=== PATIENT | female | born 1960 | race Two or more races ===

== ENCOUNTER 2024-09-01 08:55 | Day surgery (SDC) | payer MEDICAID, SELFPAY ==
[2024-08-31 13:31] VITALS: BMI 37.8
[2024-09-01] VITALS (9 sets, daily range): BP systolic 120–159; BP diastolic 67–95; PULSE 71–80; RESP 13–20; TEMP 36.1–37; O2SAT 93–100; BMI 38.9
[2024-09-01] MEDS: RINGERS LACTATED 1000 ML 1,000 ML 125 ML IV (10:50)
[2024-09-01] MEDS: BENZOCAINE 20% (Hurricaine) SPRAY 1 DOSE TOP (10:50)
[2024-09-01] MEDS: MIDAZOLAM INJ 1 MG/ML VIAL 2 ML (ASD USE ONLY) 2 MG IVP (10:55)
[2024-09-01] MEDS: fentaNYL CIT INJ 50 mCg/ML AMP 2ML (ASD USE ONLY) IVP (10:55)
== END 2024-09-01 11:35 | disposition home or self-care (01) ==
PROVIDERS: PCP Nurse Practitioner Family; Referring Provider Internal Medicine Gastroenterology; Visit Provider Internal Medicine Gastroenterology
PROC: (CPT 43239; principal; 2024-09-01 09:45)
DX: K21.00 Gastro-esophageal reflux disease with esophagitis, without bleeding (principal); K76.0 Fatty (change of) liver, not elsewhere classified; E66.9 Obesity, unspecified; K44.9 Diaphragmatic hernia without obstruction or gangrene; K29.70 Gastritis, unspecified, without bleeding; K63.89 Other specified diseases of intestine; K29.50 Unspecified chronic gastritis without bleeding
CPT/HCPCS: 43239; J1200; J2250; J3010; J7120; A9270

== ENCOUNTER 2024-09-03 10:10 | Day surgery (SDC) | payer MEDICAID, SELFPAY ==
[2024-09-02 14:22] VITALS: BMI 37.8
[2024-09-03] VITALS (9 sets, daily range): BP systolic 124–155; BP diastolic 78–104; PULSE 71–82; RESP 12–20; TEMP 36.3–36.5; O2SAT 95–98; BMI 35.6
[2024-09-03] MEDS: MIDAZOLAM INJ 1 MG/ML VIAL 2 ML (ASD USE ONLY) 2 MG IVP (10:28)
[2024-09-03] MEDS: fentaNYL CIT INJ 50 mCg/ML AMP 2ML (ASD USE ONLY) IVP (10:58)
[2024-09-03] MEDS: RINGERS LACTATED 1000 ML 1,000 ML 125 ML IV (10:58)
== END 2024-09-03 12:05 | disposition home or self-care (01) ==
PROVIDERS: PCP Nurse Practitioner Family; Referring Provider Internal Medicine Gastroenterology; Visit Provider Internal Medicine Gastroenterology
PROC: 0DBE8ZX Excision of Large Intestine, Via Natural or Artificial Opening Endoscopic, Diagnostic (ICD-10-PCS; CPT 45380; principal; 2024-09-03 13:00)
DX: K52.9 Noninfective gastroenteritis and colitis, unspecified (principal); E11.9 Type 2 diabetes mellitus without complications; K64.8 Other hemorrhoids; K63.89 Other specified diseases of intestine; K29.50 Unspecified chronic gastritis without bleeding
CPT/HCPCS: 45380; J1200; J2250; J3010; J7120